=== PATIENT | male | born 1965 | race Two or more races ===

== ENCOUNTER 2017-08-07 23:48 | Observation (INO) | payer BC ==
[2017-08-07] MEDS ORDERED: Aspirin 81 MG Tab.Chew PO ONE (23:57)
[2017-08-07] MEDS ORDERED: Nitroglycerin 2% Oint 1 GM UD Packet TOP ONE ×2 (23:57)
[2017-08-07] MEDS ORDERED: Ondansetron 4 MG/2 ML SDV IVPUSH ONE ×2 (23:58→23:59)
[2017-08-07] MEDS ORDERED: Morphine 2 MG/ML Syringe IVPUSH ONE (23:59)
--- NOTE | 2017-08-08 00:04 | EDM.PDOC ---
ED HPI GENERAL MEDICAL PROBLEM - General Chief Complaint: Chest Pain Stated Complaint: CHEST THIGHTNESS/NUMBNESS ARMS/PAIN RT LEG Time Seen by Provider: 08/08/17 00:00 - History of Present Illness INITIAL COMMENTS - FREE TEXT/NARRATIVE: HISTORY AND PHYSICAL: History of present illness: Patient 52-year-old male with extensive cardiac history including LAD stent and pacemaker who presents with concern of chest pain started earlier today with some left arm numbness this been somewhat off and on described vaguely without associated shortness of breath or diaphoresis shortly after arrival here patient is pain free he did take aspirin today and he states he is compliant with his cardiac meds. Review of systems: As per history of present illness and below otherwise all systems reviewed and negative. Past medical history: As per history of present illness and as reviewed below otherwise noncontributory. Surgical history: As per history of present illness and as reviewed below otherwise noncontributory. Social history: No reported history of drug or alcohol abuse. Family history: As per history of present illness and as reviewed below otherwise noncontributory. Physical exam: HEENT: Atraumatic, normocephalic, pupils reactive, negative for conjunctival pallor or scleral icterus, mucous membranes moist, throat clear, neck supple, nontender, trachea midline. Lungs: Clear to auscultation, breath sounds equal bilaterally, chest nontender. Heart: S1S2, regular, negative for clicks, rubs, or JVD. Abdomen: Soft, nondistended, nontender. Negative for masses or hepatosplenomegaly. Negative for costovertebral tenderness. Pelvis: Stable nontender. Genitourinary: Deferred. Rectal: Deferred. Extremities: Atraumatic, negative for cords or calf pain. Neurovascular unremarkable. Neuro: Awake, alert, oriented. Cranial nerves II through XII unremarkable. Cerebellum unremarkable. Motor and sensory unremarkable throughout. Exam nonfocal. Diagnostics: CBC CMP PT/INR troponin chest x-ray EKG Therapeutics: IV O2 monitor Nitropaste 1 inch Zofran 4 mg IV when necessary morphine sulfate 2 mg IV when necessary Impression: #1 chest pain #2 history of coronary artery disease Definitive disposition and diagnosis as appropriate pending reevaluation and review of above. - Related Data Allergies Allergy/AdvReac Type Severity Reaction Status Date / Time No Known Allergies Allergy Verified 08/08/17 00:07 Home Meds: Home Meds Carvedilol 1 tab PO BID 10/13/15 [History] Gemfibrozil 1 tab PO DAILY 10/13/15 [History] Losartan Potassium 1 tab PO DAILY 10/13/15 [History] atorvaSTATin Calcium [Atorvastatin Calcium] 1 tab PO DAILY 10/13/15 [History] Aspirin [Low Dose Aspirin EC] 81 mg PO DAILY 04/13/16 [History] Clopidogrel [Plavix] 75 mg PO DAILY 08/08/17 [History] Diclofenac Sodium 100 gm TP ASDIRECTED 08/08/17 [History] FLUoxetine HCl [Fluoxetine HCl] 20 mg PO DAILY 08/08/17 [History] Multivitamin [Multivitamins] 1 tab PO DAILY 08/08/17 [History] Ranitidine HCl 300 mg PO BEDTIME 08/08/17 [History] traMADol [Ultram] 50 mg PO ASDIRECTED 08/08/17 [History] Past Medical History Other HEENT History: wears glasses Cardiovascular History: Reports: High Cholesterol, Hypertension, ID Other Cardiovascular History: coronary stents placed in LAD 2013 Respiratory History: Reports: None Gastrointestinal History: Reports: GERD, Other (See Below) Other Gastrointestinal History: rectal bleeding Genitourinary History: Reports: None Musculoskeletal History: Reports: Fracture Other Musculoskeletal History: left clavicle Neurological History: Reports: None Psychiatric History: Reports: None Endocrine/Metabolic History: Reports: None Hematologic History: Reports: None Immunologic History: Reports: None Oncologic (Cancer) History: Reports: None Dermatologic History: Reports: None - Past Surgical History Cardiovascular Surgical History: Reports: Carotid Stents, Pacer Social & Family History - Family History Family Medical History: Noncontributory - Tobacco Use Smoking Status *Q: Unknown Ever Smoked Years of Tobacco use: 35 Packs/Tins Daily: 0.5 Used Tobacco, but Quit: No Second Hand Smoke Exposure: Yes - Caffeine Use Caffeine Use: Reports: None - Alcohol Use Days Per Week of Alcohol Use: 7 Number of Drinks Per Day: 3 Total Drinks Per Week: 21 - Recreational Drug Use Recreational Drug Use: No ED ROS GENERAL - Review of Systems Review Of Systems: ROS reveals no pertinent complaints other than HPI. ED EXAM, GENERAL - Physical Exam Exam: See Below (See dictation) Course - Vital Signs Last Recorded V/S: Last Vital Signs Temp 36.4 C 03/20/18 23:48 Pulse 63 08/08/17 00:38 Resp 14 08/08/17 00:38 BP 131/83 08/08/17 00:38 Pulse Ox 99 08/08/17 00:38 - Orders/Labs/Meds Orders: Active Orders 24 hr Category Date Time Status EKG Documentation Completion [RC] STAT Care 08/07/17 23:57 Active Chest 1V Frontal [CR] Stat Exams 08/07/17 23:57 Taken Labs: Laboratory Tests 08/07/17 08/07/17 08/07/17 Range/Units 23:59 23:59 23:59 WBC 5.42 (4.0-11.0) K/uL RBC 5.18 (4.50-5.90) M/uL Hgb 15.6 (13.0-17.0) g/dL Hct 45.2 (38.0-50.0) % MCV 87.3 (80.0-98.0) fL MCH 30.1 (27.0-32.0) pg MCHC 34.5 (31.0-37.0) g/dL RDW Std Deviation 40.7 (28.0-62.0) fl RDW Coeff of Vidhi 13 (11.0-15.0) % Plt Count 140 L (150-400) K/uL MPV 10.80 (7.40-12.00) fL Neut % (Auto) 43.9 L (48.0-80.0) % Lymph % (Auto) 35.2 (16.0-40.0) % [place] % (Auto) 14.4 (0.0-15.0) % Eos % (Auto) 6.3 (0.0-7.0) % Baso % (Auto) 0.2 (0.0-1.5) % Neut # (Auto) 2.4 (1.4-5.7) K/uL Lymph # (Auto) 1.9 (0.6-2.4) K/uL [place] # (Auto) 0.8 (0.0-0.8) K/uL Eos # (Auto) 0.3 (0.0-0.7) K/uL Baso # (Auto) 0.0 (0.0-0.1) K/uL Nucleated RBC % 0.0 /100WBC Nucleated RBCs # 0 K/uL INR 0.99 Sodium 142 (136-148) mmol/L Potassium 3.4 L (3.5-5.1) mmol/L Chloride 105 (98-107) mmol/L Carbon Dioxide 29.4 (21.0-32.0) mmol/L BUN 14 (7.0-18.0) mg/dL Creatinine 0.9 (0.8-1.3) mg/dL Est Cr Clr Drug Dosing TNP Estimated GFR (MDRD) > 60.0 ml/min Glucose 104 (74-106) mg/dL Calcium 8.7 (8.5-10.1) mg/dL Total Bilirubin 0.5 (0.2-1.0) mg/dL AST 20 (15-37) IU/L ALT 33 (14-63) IU/L Alkaline Phosphatase 90 (46-116) U/L Troponin I < 0.050 (0.000-0.056) ng/mL Total Protein 7.2 (6.4-8.2) g/dL Albumin 3.8 (3.4-5.0) g/dL Globulin 3.4 (2.0-3.5) g/dL Albumin/Globulin Ratio 1.1 L (1.3-2.8) Meds: Medications Discontinued Medications Generic Name Dose Route Start Last Admin Trade Name Deon PRN Reason Stop Dose Admin Aspirin 324 mg 08/07/17 23:57 08/08/17 00:20 Aspirin PO 08/07/17 23:58 Not Given ONETIME ONE Morphine Sulfate 2 mg 08/07/17 23:58 08/08/17 00:20 Morphine IVPUSH 08/07/17 23:59 Not Given ONETIME ONE Morphine Sulfate 2 mg 08/07/17 23:59 Morphine IVPUSH 08/08/17 00:00 ONETIME ONE Nitroglycerin 1 gm 08/07/17 23:57 08/08/17 00:20 Nitro-Bid 2% TOP 08/07/17 23:58 Not Given ONETIME ONE Nitroglycerin 1 gm 08/07/17 23:57 08/08/17 00:02 Nitro-Bid 2% TOP 08/07/17 23:58 1 gm ONETIME ONE Administration Ondansetron HCl 4 mg 08/07/17 23:58 08/08/17 00:20 Zofran IVPUSH 08/07/17 23:59 Not Given ONETIME ONE Ondansetron HCl 4 mg 08/07/17 23:59 Zofran IVPUSH 08/08/17 00:00 ONETIME ONE Departure - Departure Time of Disposition: 00:44 Disposition: Refer to Observation Condition: Good Clinical Impression: Chest pain Qualifiers: Chest pain type: unspecified Qualified Code(s): R07.9 - Chest pain, unspecified - Discharge Information Referrals: Gali Mireles NP [Primary Care Provider] - Forms: ED Department Discharge - My Orders Last 24 Hours: My Active Orders 08/07/17 23:57 EKG Documentation Completion [RC] STAT Chest 1V Frontal [CR] Stat - Assessment/Plan Last 24 Hours: My Active Orders 08/07/17 23:57 EKG Documentation Completion [RC] STAT Chest 1V Frontal [CR] Stat
[2017-08-08] MEDS: Morphine 2 MG/ML Syringe IVPUSH ONE ×2 (00:20→01:52)
[2017-08-08 00:31] LABS: CHLORIDE,CL 105 mmol/L (98-107); SODIUM,NA 142 mmol/L (136-148)
[2017-08-08] MEDS ORDERED: Ondansetron 4 MG/2 ML SDV IVPUSH PRN (00:50)
[2017-08-08] MEDS ORDERED: Ondansetron 4 MG Tab.DIS PO PRN (00:50)
[2017-08-08] MEDS ORDERED: Acetaminophen 325 MG Tab PO PRN (00:50)
[2017-08-08] MEDS ORDERED: Morphine 10 MG/ML Syringe IVPUSH PRN (00:50)
[2017-08-08] MEDS ORDERED: Potassium Chloride 20 MEQ Tab.ER PO ONE (00:50)
[2017-08-08 06:46] LABS: CHLORIDE,CL 107 mmol/L (98-107); SODIUM,NA 143 mmol/L (136-148)
[2017-08-08] MEDS ORDERED: Morphine 2 MG/ML Syringe IVPUSH PRN (07:13)
--- NOTE | 2017-08-08 08:55 | PCM.HP ---
H&P History of Present Illness - General Date of Service: 08/08/17 Admit Problem/Dx: Admission Diagnosis/Problem Admission Diagnosis/Problem Chest pain - History of Present Illness Initial Comments - Free Text/Narative: This admission H&P also inclusive discharge summary History of present illness: This is a 52-year-old male who is presenting secondary to acute chest pain that started earlier today along with some mild numbness and tingling of his left arm. Patient denies any dyspnea that is associated with his symptoms. Patient has been admitted secondary to a extensive cardiovascular history including LAD stent, pacemaker, hypertensive medications. Patient states that he has been having on and off again chest pain for the last little while and that he got worried as this now also started to have a little bit of numbness on the left arm. EKG, and initial troponin in the ER did not show any elevation or changes. Discharge Summary Date of admission: Date of discharge: Admitting diagnosis: #1. Acute chest pain with radiation to left arm #2. Significant past medical history of cardiovascular events including LAD stenting, pacemaker placement, hypertension #3. #4. #5. Discharge diagnoses: #1. Acute chest pain now resolved ACS ruled out #2. Likely plantar fasciitis, along with possible right sciatic nerve pain/ impingement #3. Significant past medical history for cardiovascular etiologies with LAD stenting, pacemaker placement, hypertension #4. #5. Consultations: None Procedures: None Hospitalization course: Patient was admitted secondary to his chest pain due to the extensive cardiovascular history, his chest pain resolved overnight, he did not have any elevation of his troponin levels, his EKG did not indicate any acute ischemic findings. Patient however when assessed did indicate having pain radiating down his hip into his right lower extremity, the straight leg test was positive indicating possible sciatic nerve etiology. Patient also appears to be having plantar fasciitis upon assessment. Patient is to be discharged with a follow-up with his PCP for post hospital follow-up as well as assessment of possible sciatic nerve etiology, patient to follow-up with podiatry for possible plantar fasciitis etiology, patient follow-up with cardiology Dr. Garcia For his recurrent chest pain as well as to get a cardiac stress test. Disposition on discharge: Home Condition on discharge: Stable Discharge medications: Continuation of home medication Follow-up instructions: Follow-up with PCP, cardiology, podiatry Right Hip Pain Score (Numeric/FACES): 7 Chest Pain Score (Numeric/FACES): 0 - Related Data Allergies/Adverse Reactions: Allergies Allergy/AdvReac Type Severity Reaction Status Date / Time No Known Allergies Allergy Verified 08/08/17 00:07 Home Medications: Home Meds Carvedilol 1 tab PO BID 10/13/15 [History] Gemfibrozil 1 tab PO DAILY 10/13/15 [History] Losartan Potassium 1 tab PO DAILY 10/13/15 [History] atorvaSTATin Calcium [Atorvastatin Calcium] 1 tab PO DAILY 10/13/15 [History] Aspirin [Low Dose Aspirin EC] 81 mg PO DAILY 04/13/16 [History] Clopidogrel [Plavix] 75 mg PO DAILY 08/08/17 [History] Diclofenac Sodium 100 gm TP ASDIRECTED 08/08/17 [History] FLUoxetine HCl [Fluoxetine HCl] 20 mg PO DAILY 08/08/17 [History] Multivitamin [Multivitamins] 1 tab PO DAILY 08/08/17 [History] Ranitidine HCl 300 mg PO BEDTIME 08/08/17 [History] traMADol [Ultram] 50 mg PO ASDIRECTED 08/08/17 [History] Past Medical History Other HEENT History: wears glasses Cardiovascular History: Reports: High Cholesterol, Hypertension, [place], Pacemaker Other Cardiovascular History: coronary stents placed in LAD 2013 Respiratory History: Reports: None Gastrointestinal History: Reports: GERD, Other (See Below) Other Gastrointestinal History: rectal bleeding Genitourinary History: Reports: None Musculoskeletal History: Reports: Fracture Other Musculoskeletal History: left clavicle Neurological History: Reports: None Psychiatric History: Reports: None Endocrine/Metabolic History: Reports: None Hematologic History: Reports: None Immunologic History: Reports: None Oncologic (Cancer) History: Reports: None Dermatologic History: Reports: None - Infectious Disease History Infectious Disease History: Reports: None - Past Surgical History Head Surgeries/Procedures: Reports: None Cardiovascular Surgical History: Reports: Carotid Stents, Pacer Endocrine Surgical History: Reports: None Social & Family History - Family History Family Medical History: Noncontributory HEENT: Reports: None - Tobacco Use Smoking Status *Q: Never Smoker Years of Tobacco use: 35 Packs/Tins Daily: 0.5 Used Tobacco, but Quit: No Second Hand Smoke Exposure: Yes - Caffeine Use Caffeine Use: Reports: Coffee - Alcohol Use Days Per Week of Alcohol Use: 1 Number of Drinks Per Day: 3 Total Drinks Per Week: 3 Date of Last Drink: 08/05/17 Time of Last Drink: 15:00 - Recreational Drug Use Recreational Drug Use: No H&P Review of Systems - Review of Systems: Review Of Systems: ROS reveals no pertinent complaints other than HPI. Exam - Exam Exam: See Below - Vital Signs Vital Signs: Last Vital Signs Temp 36.7 C 08/08/17 08:17 Pulse 75 08/08/17 08:33 Resp 16 08/08/17 08:17 BP 129/88 08/08/17 08:33 Pulse Ox 95 08/08/17 08:17 Weight: 78.154 kg - Exam General: Alert, Oriented, Cooperative Lungs: Clear to Auscultation, Normal Respiratory Effort Cardiovascular: Regular Rate, Regular Rhythm GI/Abdominal Exam: Normal Bowel Sounds Extremities: Other (Positive straight leg test of the right lower extremity, patient indicating pain along the plantar surface of the right foot) - Patient Data Lab Results Last 24 hrs: Laboratory Results - last 24 hr 08/08/17 08/08/17 08/08/17 Range/Units 06:18 06:18 06:18 WBC 4.48 (4.0-11.0) K/uL RBC 5.02 (4.50-5.90) M/uL Hgb 14.9 (13.0-17.0) g/dL Hct 43.6 (38.0-50.0) % MCV 86.9 (80.0-98.0) fL MCH 29.7 (27.0-32.0) pg MCHC 34.2 (31.0-37.0) g/dL RDW Std Deviation 40.9 (28.0-62.0) fl RDW Coeff of Vidhi 13 (11.0-15.0) % Plt Count 128 L (150-400) K/uL MPV 10.90 (7.40-12.00) fL Neut % (Auto) 43.5 L (48.0-80.0) % Lymph % (Auto) 37.5 (16.0-40.0) % [place] % (Auto) 12.1 (0.0-15.0) % Eos % (Auto) 6.7 (0.0-7.0) % Baso % (Auto) 0.2 (0.0-1.5) % Neut # (Auto) 2.0 (1.4-5.7) K/uL Lymph # (Auto) 1.7 (0.6-2.4) K/uL [place] # (Auto) 0.5 (0.0-0.8) K/uL Eos # (Auto) 0.3 (0.0-0.7) K/uL Baso # (Auto) 0.0 (0.0-0.1) K/uL Nucleated RBC % 0.0 /100WBC Nucleated RBCs # 0 K/uL Sodium 143 (136-148) mmol/L Potassium 4.1 (3.5-5.1) mmol/L Chloride 107 (98-107) mmol/L Carbon Dioxide 26.6 (21.0-32.0) mmol/L BUN 14 (7.0-18.0) mg/dL Creatinine 0.8 (0.8-1.3) mg/dL Est Cr Clr Drug Dosing 93.96 mL/min Estimated GFR (MDRD) > 60.0 ml/min Glucose 92 (74-106) mg/dL Calcium 8.7 (8.5-10.1) mg/dL Troponin I < 0.050 (0.000-0.056) ng/mL Result Diagrams: 08/08/17 06:18 08/08/17 06:18 *Q Meaningful Use (ADM) - VTE *Q VTE Criteria *Q: - Stroke *Q Stroke Criteria *Q: - AMI *Q AMI Criteria *Q: Problem List Initiated/Reviewed/Updated: Yes Orders Last 24hrs: Active Orders 24 hr Category Date Time Status Patient Status [ADT] Routine ADT 08/08/17 00:50 Active Antiembolic Devices [RC] PER UNIT ROUTINE Care 08/08/17 00:51 Active Oxygen Therapy [RC] PRN Care 08/08/17 00:50 Active Telemetry Monitoring [Cardiac Monitoring] [RC] Q8H Care 08/08/17 00:56 Active Up With Assistance [RC] ASDIRECTED Care 08/08/17 00:50 Active VTE/DVT Education [RC] PER UNIT ROUTINE Care 08/08/17 00:50 Active Vital Signs [RC] Q4H Care 08/08/17 00:50 Active Heart Healthy Diet [DIET] Diet 03/21/18 Breakfast Active BASIC METABOLIC PANEL,BMP [CHEM] AM Lab 08/09/17 05:11 Ordered BASIC METABOLIC PANEL,BMP [CHEM] AM Lab 08/10/17 05:11 Ordered CBC WITH AUTO DIFF [HEME] AM Lab 08/09/17 05:11 Ordered CBC WITH AUTO DIFF [HEME] AM Lab 08/10/17 05:11 Ordered TROPONIN I [CHEM] Q6H Lab 08/08/17 12:00 Ordered Acetaminophen [Tylenol] Med 08/08/17 00:50 Active 650 mg PO Q4H PRN Aspirin [Halfprin] Med 08/08/17 09:00 Active 81 mg PO DAILY Carvedilol [Coreg] Med 08/08/17 09:00 Active 12.5 mg PO BID Clopidogrel [Plavix] Med 08/08/17 09:00 Active 75 mg PO DAILY FLUoxetine [PROzac] Med 08/08/17 09:00 Active 20 mg PO DAILY Gemfibrozil [Lopid] Med 08/08/17 09:00 Active 600 mg PO DAILY Losartan [Cozaar] Med 08/08/17 09:00 Active 25 mg PO DAILY Morphine Med 08/08/17 07:13 Active 2 mg IVPUSH Q2H PRN Ondansetron [Zofran ODT] Med 08/08/17 00:50 Active 4 mg PO Q4H PRN Ondansetron [Zofran] Med 08/08/17 00:50 Active 4 mg IVPUSH Q4H PRN atorvaSTATin [Lipitor] Med 08/08/17 09:00 Active 40 mg PO DAILY Sequential Compression Device [OM.PC] Per Unit Routine Oth 08/08/17 00:51 Ordered Medication Orders Acetaminophen (Tylenol) 650 mg PO Q4H PRN PRN Reason: Pain (Mild 1-3)/fever Aspirin (Halfprin) 81 mg PO DAILY [facility] Last Admin: 08/08/17 08:30 Dose: 81 mg Atorvastatin Calcium (Lipitor) 40 mg PO DAILY [facility] Last Admin: 08/08/17 08:31 Dose: 40 mg Carvedilol (Coreg) 12.5 mg PO BID [facility] Last Admin: 08/08/17 08:33 Dose: 12.5 mg Clopidogrel Bisulfate (Plavix) 75 mg PO DAILY [facility] Last Admin: 08/08/17 08:30 Dose: 75 mg Fluoxetine HCl (Prozac) 20 mg PO DAILY [facility] Last Admin: 08/08/17 08:30 Dose: 20 mg Gemfibrozil (Lopid) 600 mg PO DAILY [facility] Last Admin: 08/08/17 08:30 Dose: 600 mg Losartan Potassium (Cozaar) 25 mg PO DAILY [facility] Last Admin: 08/08/17 08:32 Dose: 25 mg Morphine Sulfate (Morphine) 2 mg IVPUSH Q2H PRN PRN Reason: Pain (severe 7-10) Ondansetron HCl (Zofran Odt) 4 mg PO Q4H PRN PRN Reason: nausea, able to take PO Ondansetron HCl (Zofran) 4 mg IVPUSH Q4H PRN PRN Reason: Nausea Assessment/Plan Comment:: 52-year-old male with a significant cardiovascular history is being admitted secondary to acute chest pain with radiation to the left extremity for ACS rule out. -Troponins 3, EKG for acute chest pain, pain medication on board for continuation of acute chest pain. -If everything is negative, patient shall follow up with PCP and establish with cardiology here in [place] for further workup including a outpatient cardiac stress test. Disposition in 1-2 days.
[2017-08-08] MEDS ORDERED: Gemfibrozil 600 MG Tab PO SCH (09:00)
[2017-08-08] MEDS ORDERED: FLUoxetine 20 MG Cap PO SCH (09:00)
[2017-08-08] MEDS ORDERED: Carvedilol 12.5 MG Tab PO SCH (09:00)
[2017-08-08] MEDS ORDERED: atorvaSTATin 40 MG Tab PO SCH (09:00)
[2017-08-08] MEDS ORDERED: Aspirin 81 MG Tab.EC PO SCH (09:00)
[2017-08-08] MEDS ORDERED: Losartan 50 MG Tab PO SCH (09:00)
[2017-08-08] MEDS ORDERED: Clopidogrel 75 MG Tab PO SCH (09:00)
--- NOTE | 2017-08-08 10:51 | CR ---
EXAM DATE: 08/08/17 PATIENT'S AGE: 52 Patient: ZACARIAS WHELAN Facility: [place], [place] Site . Site : [id number] Study: XRay Chest [id number] 12:20:24 AM Ordering Physician: Doctor Shepard Final Report: INDICATION: Chest pain TECHNIQUE: Chest radiograph 1 view COMPARISON: 05/30/2016 FINDINGS: Mediastinum: Mild cardiomegaly is noted. The mediastinum is normal in appearance. Left cardiac defibrillator is present with a single lead in the right ventricle noted. Lungs: Both lungs are unremarkable in appearance. No sign of pleural effusion seen. No pneumothorax is identified. Bones and soft tissue: Unremarkable for age. IMPRESSION: 1. No acute cardiopulmonary disease is seen. Dictated by Zen Perez MD @ 08/08/2017 12:22:24 AM Dictated by: Zen Perez MD @ 08/08/2017 00:22:27 (Electronic Signature) Report Signed by Proxy. DAMARIS
[2017-08-08 16:47] VITALS: BP 108/74
== END 2017-08-08 16:05 | disposition home or self-care (01) ==
LOC: MW.ED 23:48 → MW.MS 08-08 00:45
PROVIDERS: ADMIT Family Medicine; ATTEND Family Medicine
DX: R07.9 Chest pain, unspecified (principal); I10 Essential (primary) hypertension; E78.00 Pure hypercholesterolemia, unspecified; I25.2 Old myocardial infarction; K21.9 Gastro-esophageal reflux disease without esophagitis; Z95.5 Presence of coronary angioplasty implant and graft; Z95.0 Presence of cardiac pacemaker; Z79.899 Other long term (current) drug therapy; Z79.82 Long term (current) use of aspirin; Z79.02 Long term (current) use of antithrombotics/antiplatelets
CPT/HCPCS: 36415; 71045; 80048; 80053; 83735; 84484; 85025; 85610; 93005; 99285; A9270; J2270; 96374; 96376; 99283; G0378

== ENCOUNTER 2019-08-15 09:57 | Emergency (ER) | payer BC, OTHER ==
--- NOTE | 2019-08-15 10:17 | EDM.PDOC ---
ED HPI GENERAL MEDICAL PROBLEM - General Chief Complaint: Respiratory Problem Stated Complaint: COUGH/SOB Time Seen by Provider: 08/15/19 10:11 Source of Information: Reports: Patient History Limitations: Reports: No Limitations - History of Present Illness INITIAL COMMENTS - FREE TEXT/NARRATIVE: This is a 54-year-old male who presents the emergency room with a chief complaint of coughing and feeling weak for the past 2 weeks. Patient denies chest pain he is short of breath. Patient has no chest pain no fever or chills. Patient has no recent travel or any contact with coronavirus patient's Onset: Today Duration: Week(s): (2) Location: Reports: Chest Severity: Mild Improves with: Reports: None Worsens with: Reports: None Associated Symptoms: Reports: No Other Symptoms chest Pain Score (Numeric/FACES): 6 - Related Data Allergies Allergy/AdvReac Type Severity Reaction Status Date / Time No Known Allergies Allergy Verified 08/15/19 10:04 Home Meds: Home Meds Gemfibrozil 1 tab PO DAILY 10/13/15 [History] Losartan Potassium 1 tab PO DAILY 10/13/15 [History] atorvaSTATin Calcium [Atorvastatin Calcium] 1 tab PO DAILY 10/13/15 [History] carvediloL [Carvedilol] 1 tab PO BID 10/13/15 [History] Aspirin [Low Dose Aspirin EC] 81 mg PO DAILY 04/13/16 [History] Clopidogrel [Plavix] 75 mg PO DAILY 08/08/17 [History] Diclofenac Sodium 100 gm TP ASDIRECTED 08/08/17 [History] FLUoxetine HCl [Fluoxetine HCl] 20 mg PO DAILY 08/08/17 [History] Multivitamin [Multivitamins] 1 tab PO DAILY 08/08/17 [History] raNITIdine HCL [Ranitidine HCl] 300 mg PO BEDTIME 08/08/17 [History] traMADol [Ultram] 50 mg PO ASDIRECTED 08/08/17 [History] Benzonatate [Tessalon Perle] 100 mg PO Q8HR #20 capsule 08/15/19 [Rx] Past Medical History HEENT History: Reports: Other (See Below) Other HEENT History: wears glasses Cardiovascular History: Reports: High Cholesterol, Hypertension, [place], Pacemaker Other Cardiovascular History: coronary stents placed in LAD 2013 Respiratory History: Reports: None Gastrointestinal History: Reports: GERD, Other (See Below) Other Gastrointestinal History: rectal bleeding Genitourinary History: Reports: None Musculoskeletal History: Reports: Fracture Other Musculoskeletal History: left clavicle Neurological History: Reports: None Psychiatric History: Reports: None Endocrine/Metabolic History: Reports: None Hematologic History: Reports: None Immunologic History: Reports: None Oncologic (Cancer) History: Reports: None Dermatologic History: Reports: None - Infectious Disease History Infectious Disease History: Reports: None - Past Surgical History Head Surgeries/Procedures: Reports: None HEENT Surgical History: Reports: None Cardiovascular Surgical History: Reports: Carotid Stents, Pacer Respiratory Surgical History: Reports: None GI Surgical History: Reports: None Male Surgical History: Reports: None Endocrine Surgical History: Reports: None Neurological Surgical History: Reports: None Musculoskeletal Surgical History: Reports: None Oncologic Surgical History: Reports: None Dermatological Surgical History: Reports: None Social & Family History - Family History Family Medical History: Noncontributory HEENT: Reports: None - Tobacco Use Smoking Status *Q: Never Smoker Second Hand Smoke Exposure: No - Caffeine Use Caffeine Use: Reports: None - Recreational Drug Use Recreational Drug Use: No ED ROS GENERAL - Review of Systems Review Of Systems: See Below Constitutional: Reports: Weakness, Fatigue HEENT: Reports: No Symptoms Respiratory: Reports: Cough Cardiovascular: Reports: No Symptoms Endocrine: Reports: No Symptoms GI/Abdominal: Reports: No Symptoms : Reports: No Symptoms Musculoskeletal: Reports: No Symptoms Skin: Reports: No Symptoms Neurological: Reports: No Symptoms Psychiatric: Reports: No Symptoms Hematologic/Lymphatic: Reports: No Symptoms Immunologic: Reports: No Symptoms ED EXAM, GENERAL - Physical Exam Exam: See Below Exam Limited By: No Limitations General Appearance: Alert, WD/WN, No Apparent Distress Eye Exam: Bilateral Eye: Normal Fundi, Normal Inspection, PERRL Ears: Normal External Exam, Normal Canal, Hearing Grossly Normal, Normal TMs Ear Exam: Bilateral Ear: Auricle Normal, Canal Normal, TM normal Nose: Normal Inspection, Normal Mucosa Throat/Mouth: Normal Inspection, Normal Lips Head: Atraumatic, Normocephalic Neck: Normal Inspection, Supple, Non-Tender Respiratory/Chest: No Respiratory Distress, Lungs Clear, Normal Breath Sounds, No Accessory Muscle Use Cardiovascular: Normal Peripheral Pulses, Regular Rate, Rhythm, No Edema, No JVD GI/Abdominal: Normal Bowel Sounds, Soft, Non-Tender, No Distention, No Abnormal Bruit Back Exam: Normal Inspection, Full Range of Motion Extremities: Normal Inspection, Normal Range of Motion Neurological: Alert, Oriented, CN II-XII Intact, Normal Cognition, Normal Reflexes, No Motor/Sensory Deficits Psychiatric: Normal Affect, Normal Mood Skin Exam: Warm, Dry, Intact, Normal Color Lymphatic: No Adenopathy Course - Vital Signs Text/Narrative:: 34-year-old gentleman presents to the emergency room with a chief complaint of cough weakness and shortness of breath. Incident occurred over the past 2 weeks. Patient has a history of pacemaker, disease, patient has no history of recent travel. On exam patient was not wheezing and had good breath sounds. Patient had a negative f test. Patient's coronavirus test is pending at this point time. Patient will be discharged home instructed to self treat for the next 2 weeks. And wait for results of his coronavirus test. Assessment: Patient has a URI. Plan: [id number] medications stay hydrated, zinc lozenges Last Recorded V/S: Last Vital Signs Temp 96.0 F L 08/15/19 10:05 Pulse 77 08/15/19 10:05 Resp 18 08/15/19 10:05 BP 134/82 08/15/19 10:05 Pulse Ox 97 08/15/19 10:05 - Orders/Labs/Meds Orders: Active Orders 24 hr Category Date Time Status EKG Documentation Completion [RC] STAT Care 08/15/19 10:10 Inactive CORONAVIRUS COVID-19 PCR PHL [MREF] Stat Lab 08/15/19 10:13 Received Departure - Departure Time of Disposition: 10:52 Disposition: Home, Self-Care 01 Clinical Impression: URI (upper respiratory infection) - Discharge Information Prescriptions: Benzonatate [Tessalon Perle] 100 mg PO Q8HR #20 capsule Instructions: Upper Respiratory Infection, Adult, [id number] Referrals: PCP,Unobtain [Primary Care Provider] - Forms: ED Department Discharge Additional Instructions: I. Take your medication as prescribed 2. With your primary physician within the next 2 weeks 3. A home for the next 2 weeks/ Sepsis Event Note - Evaluation Sepsis Screening Result: No Definite Risk - Focused Exam Vital Signs: Vital Signs Temp Pulse Resp BP Pulse Ox 08/15/19 10:05 96.0 F L 77 18 134/82 97 Date Exam was Performed: 08/15/19 Time Exam was Performed: 10:59 - My Orders Last 24 Hours: My Active Orders 08/15/19 10:10 EKG Documentation Completion [RC] STAT 08/15/19 10:13 CORONAVIRUS COVID-19 PCR PHL [MREF] Stat - Assessment/Plan Last 24 Hours: My Active Orders 08/15/19 10:10 EKG Documentation Completion [RC] STAT 08/15/19 10:13 CORONAVIRUS COVID-19 PCR PHL [MREF] Stat
[2019-08-15] MEDS ORDERED: Benzonatate 100 MG Cap PO PRN (10:56)
[2019-08-15 11:11] VITALS: BP 124/82; PULSE 61
== END 2019-08-15 11:10 | disposition home or self-care (01) ==
LOC: MW.ED 09:57
DX: Z20.828 Contact with and (suspected) exposure to other viral communicable diseases (principal)
CPT/HCPCS: 87804; 99283; 99284-25; U0001; U0002